=== PATIENT | female | born 1995 | race Two or more races ===

== ENCOUNTER 2023-07-20 07:07 | Outpatient (CLI) | payer OTHER | END 2023-07-20 07:17 | disposition home or self-care (01) | LOC: PPH VACUNA 07:07 | PROVIDERS: ATTEND Emergency Medicine Pediatric Emergency Medicine | DX: Z23 Encounter for immunization (principal) | CPT/HCPCS: 90686; G0008 ==

== ENCOUNTER 2023-10-25 06:24 | Outpatient (CLI) | payer OTHER ==
[2023-10-25 07:47] LABS: URINE APPEARANCE Clear; URINE BILIRRUBIN Negative (NEGATIVE); URINE BLOOD Negative; URINE COLOR Yellow; URINE GLUCOSE Negative (NEGATIVE); URINE LEUKOCYTE Negative; URINE NITRATE Negative; URINE PROTEIN Negative (NEGATIVE)
[2023-10-25 07:47] LABS: HEMATOCRIT 32.9 % (36.0-45.00); HEMOGLOBIN 11.4 g/dL (12.0-15.00); MEAN CELL VOLUME 89.1 fL (80.00-100.00); MEAN CORPUSCULAR HEMOGLOBIN 30.9 pg (27.00-32.0); MEAN CORPUSCULAR HGB CONC 34.7 g/dl (32.0-36.0); PLATELET COUNT 235 K/uL (150-450); RED BLOOD COUNT 3.69 M/uL (4.00-6.00); RED CELL DISTRIBUTION WIDTH 12.8 % (11.5-14.5)
[2023-10-25 07:50] LABS: URINE BACTERIA 784.8 uL (0.0-1933); URINE EPITHELIAL CELLS 19.6 uL (0.0-38.8); URINE RBC 3.3 uL (0.0-20.8); URINE WBC 5.4 uL (0.0-23.2)
[2023-10-25 12:05] LABS: RH POSITIVE
[2023-10-27 08:10] LABS: HEPATITIS C VIRUS ANTIBODY Non Reactive (Non Reactive); VARICELLA ZOSTER VIRUS IGG 2511 index (Immune >165)
[2023-10-28 16:07] LABS: RUBELLA IGM <20.0 AU/mL (0.0-19.9)
== END 2023-10-25 06:25 | disposition home or self-care (01) ==
LOC: LAB 06:24
PROVIDERS: ATTEND Obstetrics & Gynecology
DX: Z34.01 Encounter for supervision of normal first pregnancy, first trimester (principal); Z3A.01 Less than 8 weeks gestation of pregnancy; A92.8 Other specified mosquito-borne viral fevers